=== PATIENT | female | born 1960 | race African-American/Black ===

== ENCOUNTER 2022-12-19 10:54 | Emergency (ER) | payer MEDICAID ==
[~2022-12-19] VITALS: Ht 170.2 cm; Wt 77.0 kg
[2022-12-19 10:59] VITALS: BP 177/77
[2022-12-19 11:57] LABS: EOSINOPHILS % 1.7 % (0.0-5.0); HEMATOCRIT. 41.9 % (36.0-48.0); HEMOGLOBIN. 13.7 g/dL (12.0-16.0); LYMPHOCYTES % 35.4 % (20.0-50.0); MEAN CORPUSCULAR HEMOGLOBIN 30.2 pg (28.0-32.0); MEAN CORPUSCULAR VOLUME 92.2 fL (81.0-99.0); MEAN PLATELET VOLUME 8.4 fl (7.4-10.4); MONOCYTES % 12.7 % (2.0-8.0); NEUTROPHILS % 49.2 % (40.0-76.0); PLATELET 283 x1000/uL (130-400); RED BLOOD CELL COUNT 4.54 mill/uL (4.2-5.4); RED CELL DISTRIBUTION WIDTH 14.5 % (11.6-14.6)
[2022-12-19 12:04] LABS: CHLORIDE 105 mEq/L (98-107)
== END 2022-12-19 13:27 | disposition home or self-care (01) ==
LOC: ER 11:39
DX: R55 Syncope and collapse (principal); I10 Essential (primary) hypertension; E78.00 Pure hypercholesterolemia, unspecified
CPT/HCPCS: 36415; 71045; 80053; 83880; 84484; 85025; 93005; 99285